=== PATIENT | female | born 1930 | race Caucasian/White ===

== ENCOUNTER 2017-12-06 15:20 | Inpatient (IN) | payer MEDICARE, OTHER ==
[~2017-12-06] VITALS: Ht 160 cm; Wt 85.7 kg
[~2017-12-06 15:20] MED LIST: [UNRECOGNIZED DRUG - REMARK]
[2017-12-06 15:30] VITALS: BP 135/60
[2017-12-06] MEDS ORDERED: DEXTROSE 50%-WATER 25 GM/50 ML SYRINGE IVP PRN (17:00)
[2017-12-06] MEDS ORDERED: IPRATROPIUM BROMIDE 0.5 MG/2.5 ML NEB SOLUTION NEB PRN (17:00)
[2017-12-06] MEDS ORDERED: ALBUTEROL SULFATE 2.5 MG/0.5 ML NEB SOLUTION NEB PRN (17:00)
[2017-12-06] MEDS ORDERED: MENTHOL/ZINC OXIDE 113 GM OINTMENT TP PRN (17:15)
[2017-12-06] MEDS: ACETAMINOPHEN 650 MG/20.3 ML SOLUTION UDCUP NG PRN (18:36)
[2017-12-06 18:38] LABS: GLUCOMETER DEV NAME(LOC) 2WR 1B; GLUCOSE,POINT OF CARE 102 MG/DL (70-110)
[2017-12-06] MEDS: ATORVASTATIN CALCIUM 40 MG TABLET NG SCH (20:21)
[2017-12-06] MEDS: SENNA 218 MG/5 ML SYRUP ORAL.SYG NG SCH (20:21)
[2017-12-07 00:18] VITALS: BP 100/57
[2017-12-07 00:18] LABS: GLUCOMETER DEV NAME(LOC) 2WR 1B; GLUCOSE,POINT OF CARE 131 MG/DL (70-110)
[2017-12-07] MEDS: LEVOTHYROXINE SODIUM 75 MCG TABLET NG SCH (05:44)
[2017-12-07 06:07] LABS: GLUCOMETER DEV NAME(LOC) 2WR 2D; GLUCOSE,POINT OF CARE 119 MG/DL (70-110)
[2017-12-07 07:10] LABS: BASOPHILS % (AUTO) 0.8 % (0.0-2.0); HEMOGLOBIN 12.1 g/dL (12.0-16.0); LYMPHOCYTES # (AUTO) 3.6 K/uL (1.0-4.8); LYMPHOCYTES % (AUTO) 33.2 % (22.0-44.0); MEAN CORPUSCULAR HEMOGLOBIN 29.4 pg (26.0-34.0); MEAN CORPUSCULAR HGB CONC 32.7 G/dL (31.0-37.0); MEAN CORPUSCULAR VOLUME 90 fL (80-100); MONOCYTES # (AUTO) 0.9 K/uL (0.1-1.0); MONOCYTES % (AUTO) 8.5 % (2.0-9.0); NEUTROPHILS # (AUTO) 5.9 K/uL (1.8-7.7); NEUTROPHILS % (AUTO) 54.5 % (40.0-70.0); PLATELET COUNT (AUTO) 263 K/uL (150-450); RED BLOOD CELL COUNT(AUTO) 4.11 MIL/uL (4.00-5.20); RED CELL DISTRIBUTION WIDTH 14.3 % (11.5-14.5)
[2017-12-07 07:30] VITALS: BP 150/57
[2017-12-07 07:32] LABS: ALANINE AMINOTRANSFERASE 27 U/L (12-78); ALBUMIN 2.5 g/dL (3.4-5.0); ALKALINE PHOSPHATASE 107 U/L (46-116); ANION GAP 6 mmol/L (8-16); ASPARTATE AMINOTRANSFERASE 23 U/L (15-37); BILIRUBIN,TOTAL 0.3 mg/dL (0.1-1.0); CALCIUM, TOTAL 8.7 mg/dL (8.8-10.5); CARBON DIOXIDE 29 mmol/L (22-29); CHLORIDE 102 mmol/L (98-107); GLOMERULAR FILTR. RATE CALC > 60 mL/min (>60); GLUCOSE,RANDOM 113 mg/dL (70-110); SODIUM SERUM 137 mmol/L (136-145); TOTAL PROTEIN, SERUM 7.4 g/dL (6.4-8.2); UREA NITROGEN, BLOOD 28 mg/dL (7-18)
[2017-12-07] MEDS: MULTIVITAMINS WITH MINERALS, THERAPEUTIC 15 ML UDCUP NG SCH (08:35)
[2017-12-07] MEDS: CHOLECALCIFEROL (VIT D3) 1,000 UNITS TABLET NG SCH (08:35)
[2017-12-07] MEDS: ENOXAPARIN SODIUM 40 MG/0.4 ML PF SYRINGE SQ SCH (08:35)
[2017-12-07] MEDS: FUROSEMIDE 20 MG TABLET NG SCH (08:36)
[2017-12-07] MEDS: HYDROCHLOROTHIAZIDE 25 MG TABLET NG SCH (08:38)
[2017-12-07] MEDS: ASPIRIN 81 MG CHEWABLE TABLET NG SCH (08:38)
[2017-12-07] MEDS: ACETAMINOPHEN 650 MG/20.3 ML SOLUTION UDCUP NG PRN (10:26)
[2017-12-07 16:05] VITALS: BP 128/60
[2017-12-07 16:33] LABS: APPEARANCE,URINE CLEAR (CLEAR); BILIRUBIN,URINE NEGATIVE (NEGATIVE); GLUCOSE, URINE (UA) NEGATIVE (NEGATIVE); KETONES,URINE NEGATIVE (NEGATIVE); LEUKOCYTE ESTERASE ,URINE TRACE (NEGATIVE); NITRATE,URINE NEGATIVE (NEGATIVE); OCCULT BLOOD,URINE NEGATIVE (NEGATIVE); PH,URINE 5.5 (5.0-8.0); PROTEIN,URINE NEGATIVE (NEGATIVE); UROBILINOGEN,URINE 0.2 mg/dL (<=1.0)
[2017-12-07 16:53] LABS: BACTERIA,URINE None Seen /HPF (None Seen); RBC,URINE None Seen /HPF (0-2); RENAL EPITHELIAL CELLS,URINE Few /LPF (None Seen); SQUAMOUS EPITHELIAL CELL,UR Few /LPF (None Seen)
[2017-12-07 19:07] LABS: GLUCOMETER DEV NAME(LOC) 2WR 2D; GLUCOSE,POINT OF CARE 139 MG/DL (70-110)
[2017-12-07 19:07] LABS: GLUCOMETER DEV NAME(LOC) 2WR 1B; GLUCOSE,POINT OF CARE 137 MG/DL (70-110)
[2017-12-07] MEDS: SENNA 218 MG/5 ML SYRUP ORAL.SYG NG SCH (21:22)
[2017-12-07] MEDS: ATORVASTATIN CALCIUM 40 MG TABLET NG SCH (21:22)
[2017-12-07 23:20] VITALS: BP 140/64
[2017-12-07] MEDS: INSULIN REGULAR, HUMAN 100 UNITS/ML SQ PRN (23:47)
[2017-12-07 23:52] LABS: GLUCOMETER DEV NAME(LOC) 2WR 1B; GLUCOSE,POINT OF CARE 144 MG/DL (70-110)
[2017-12-08] MEDS: LEVOTHYROXINE SODIUM 75 MCG TABLET NG SCH (05:52)
[2017-12-08] MEDS: INSULIN REGULAR, HUMAN 100 UNITS/ML SQ PRN (05:54)
[2017-12-08 06:18] LABS: GLUCOMETER DEV NAME(LOC) 2WR 1B; GLUCOSE,POINT OF CARE 158 MG/DL (70-110)
[2017-12-08 07:41] VITALS: BP 148/67
[2017-12-08] MEDS: ENOXAPARIN SODIUM 40 MG/0.4 ML PF SYRINGE SQ SCH (08:49)
[2017-12-08] MEDS: ASPIRIN 81 MG CHEWABLE TABLET NG SCH (08:49)
[2017-12-08] MEDS: HYDROCHLOROTHIAZIDE 25 MG TABLET NG SCH (08:49)
[2017-12-08] MEDS: CHOLECALCIFEROL (VIT D3) 1,000 UNITS TABLET NG SCH (08:49)
[2017-12-08] MEDS: FUROSEMIDE 20 MG TABLET NG SCH (08:49)
[2017-12-08] MEDS: MULTIVITAMINS WITH MINERALS, THERAPEUTIC 15 ML UDCUP NG SCH (08:53)
[2017-12-08] MEDS: PHENOL 1.4% 177 ML SPRAY BOTTLE PO PRN (09:06)
[2017-12-08] MEDS: HYPROMELLOSE 0.5% 15 ML OPHTHALMIC SOLUTION OU PRN (09:06)
[2017-12-08] MEDS ORDERED: DEXTROSE 50%-WATER 25 GM/50 ML SYRINGE IVP PRN (09:30)
[2017-12-08] MEDS ORDERED: LinaGLIPtin 5 MG TABLET PO SCH (11:00)
[2017-12-08 13:42] LABS: GLUCOMETER DEV NAME(LOC) 2WR 1B; GLUCOSE,POINT OF CARE 122 MG/DL (70-110)
[2017-12-08 16:45] VITALS: BP 125/56
[2017-12-08] MEDS: INSULIN ASPART 100 UNITS/ML SQ PRN (18:37)
[2017-12-08 18:52] LABS: GLUCOMETER DEV NAME(LOC) PVLAB127; GLUCOSE,POINT OF CARE 166 MG/DL (70-110)
[2017-12-08] MEDS: SENNA 218 MG/5 ML SYRUP ORAL.SYG NG SCH (21:08)
[2017-12-08] MEDS: ATORVASTATIN CALCIUM 40 MG TABLET NG SCH (21:08)
[2017-12-09] VITALS: BP_SYST 134; BP_SYST 137; BP_DIAS 56; BP_DIAS 68
[2017-12-09 00:13] LABS: GLUCOMETER DEV NAME(LOC) 2WR 1B; GLUCOSE,POINT OF CARE 129 MG/DL (70-110)
[2017-12-09] MEDS ORDERED: GABA-531 PO (04:20)
[2017-12-09] MEDS ORDERED: BENZ-51 PO (04:20)
[2017-12-09] MEDS ORDERED: FAMO20 PO (04:20)
[2017-12-09] MEDS ORDERED: PRAV40TA4 PO (04:20)
[2017-12-09] MEDS ORDERED: ASPI-1182 PO (04:20)
[2017-12-09] MEDS ORDERED: LEVO75 PO (04:20)
[2017-12-09] MEDS ORDERED: AMLO2.5T PO (04:20)
[2017-12-09] MEDS ORDERED: LINA5TAB PO (04:20)
[2017-12-09] MEDS: DOCUSATE SODIUM 283 MG/5 ML MINI-ENEMA PR PRN (05:42)
[2017-12-09] MEDS: LEVOTHYROXINE SODIUM 75 MCG TABLET NG SCH (05:43)
[2017-12-09 06:13] LABS: GLUCOMETER DEV NAME(LOC) 2WR 1B; GLUCOSE,POINT OF CARE 139 MG/DL (70-110)
[2017-12-09 06:45] LABS: BASOPHILS # (AUTO) 0.06 K/uL (0.00-0.20); BASOPHILS % (AUTO) 0.5 % (0.0-2.0); EOSINOPHILS # (AUTO) 0.27 K/uL (0.00-0.70); HEMATOCRIT 41.2 % (36-46); HEMOGLOBIN 13.2 g/dL (12.0-16.0); LYMPHOCYTES # (AUTO) 3.8 K/uL (1.0-4.8); MEAN CORPUSCULAR HEMOGLOBIN 28.7 pg (26.0-34.0); MEAN CORPUSCULAR VOLUME 90 fL (80-100); MONOCYTES # (AUTO) 0.9 K/uL (0.1-1.0); MONOCYTES % (AUTO) 7.1 % (2.0-9.0); NEUTROPHILS # (AUTO) 7.7 K/uL (1.8-7.7); NEUTROPHILS % (AUTO) 60.3 % (40.0-70.0); PLATELET COUNT (AUTO) 272 K/uL (150-450); RED BLOOD CELL COUNT(AUTO) 4.59 MIL/uL (4.00-5.20); RED CELL DISTRIBUTION WIDTH 14.7 % (11.5-14.5)
[2017-12-09 07:15] LABS: HEMOGLOBIN A1C 6.8 % (4.5-6.2)
[2017-12-09 07:20] LABS: ANION GAP 8 mmol/L (8-16); CALCIUM, TOTAL 9.1 mg/dL (8.8-10.5); CARBON DIOXIDE 30 mmol/L (22-29); CHLORIDE 96 mmol/L (98-107); CHOL/HDL RATIO 2.5 (3.9-5.7); CHOLESTEROL 87 mg/dL (131-200); CREATININE 0.77 mg/dL (0.60-1.30); GLOMERULAR FILTR. RATE CALC > 60 mL/min (>60); GLUCOSE,RANDOM 154 mg/dL (70-110); HDL CHOLESTEROL 35 mg/dL (40-60); LDL CHOL (CALC.) 35 mg/dL (0-130); POTASSIUM 3.8 mmol/L (3.5-5.1); SODIUM SERUM 134 mmol/L (136-145); THYROID STIMULATING HORMONE 13.04 uIU/mL (0.36-3.74); TRIGLYCERIDES 85 mg/dL (15-150); UREA NITROGEN, BLOOD 28 mg/dL (7-18)
[2017-12-09 07:41] VITALS: BP 119/67
[2017-12-09] MEDS: PHENOL 1.4% 177 ML SPRAY BOTTLE PO PRN (08:18)
[2017-12-09] MEDS: MULTIVITAMINS WITH MINERALS, THERAPEUTIC 15 ML UDCUP NG SCH (08:18)
[2017-12-09] MEDS: CHOLECALCIFEROL (VIT D3) 1,000 UNITS TABLET NG SCH (08:19)
[2017-12-09] MEDS: LinaGLIPtin 5 MG TABLET PO SCH (08:19)
[2017-12-09] MEDS: HYDROCHLOROTHIAZIDE 25 MG TABLET NG SCH (08:19)
[2017-12-09] MEDS: FUROSEMIDE 20 MG TABLET NG SCH (08:19)
[2017-12-09] MEDS: HYPROMELLOSE 0.5% 15 ML OPHTHALMIC SOLUTION OU PRN (08:19)
[2017-12-09] MEDS: ASPIRIN 81 MG CHEWABLE TABLET NG SCH (08:19)
[2017-12-09] MEDS: ENOXAPARIN SODIUM 40 MG/0.4 ML PF SYRINGE SQ SCH (08:19)
[2017-12-09 12:22] LABS: GLUCOMETER DEV NAME(LOC) PVLAB127; GLUCOSE,POINT OF CARE 145 MG/DL (70-110)
[2017-12-09] MEDS: INSULIN ASPART 100 UNITS/ML SQ PRN (12:25)
[2017-12-09 15:35] VITALS: BP 126/65
[2017-12-09 18:27] LABS: GLUCOMETER DEV NAME(LOC) PVLAB127; GLUCOSE,POINT OF CARE 137 MG/DL (70-110)
[2017-12-09] MEDS: SENNA 218 MG/5 ML SYRUP ORAL.SYG NG SCH (20:01)
[2017-12-09] MEDS: ATORVASTATIN CALCIUM 40 MG TABLET NG SCH (20:02)
[2017-12-09 23:53] LABS: GLUCOMETER DEV NAME(LOC) PVLAB127; GLUCOSE,POINT OF CARE 149 MG/DL (70-110)
[2017-12-10] VITALS: BP 129/71
[2017-12-10] MEDS: GuaiFENesin [SUGAR-FREE] 200 MG/10 ML SOLUTION UDCUP PO PRN ×2 (02:16→09:26)
[2017-12-10] MEDS: MODAFINIL 100 MG TABLET PO SCH ×2 (05:52→07:12)
[2017-12-10] MEDS: LEVOTHYROXINE SODIUM 150 MCG TABLET NG SCH (05:52)
[2017-12-10 06:07] LABS: GLUCOMETER DEV NAME(LOC) PVLAB127; GLUCOSE,POINT OF CARE 136 MG/DL (70-110)
[2017-12-10 07:05] VITALS: BP 135/62
[2017-12-10] MEDS: ENOXAPARIN SODIUM 40 MG/0.4 ML PF SYRINGE SQ SCH (07:31)
[2017-12-10] MEDS: CHOLECALCIFEROL (VIT D3) 1,000 UNITS TABLET NG SCH (07:31)
[2017-12-10] MEDS: ASPIRIN 81 MG CHEWABLE TABLET NG SCH (07:31)
[2017-12-10] MEDS: PHENOL 1.4% 177 ML SPRAY BOTTLE PO PRN (07:31)
[2017-12-10] MEDS: MULTIVITAMINS WITH MINERALS, THERAPEUTIC 15 ML UDCUP NG SCH (07:31)
[2017-12-10] MEDS: LinaGLIPtin 5 MG TABLET PO SCH (07:31)
[2017-12-10] MEDS: HYDROCHLOROTHIAZIDE 25 MG TABLET NG SCH (07:32)
[2017-12-10] MEDS: FUROSEMIDE 20 MG TABLET NG SCH ×3 (07:32→20:56)
[2017-12-10] MEDS: HYPROMELLOSE 0.5% 15 ML OPHTHALMIC SOLUTION OU PRN (07:32)
[2017-12-10] MEDS: SULFAMETHOX/TRIMETH DS 800-160 MG/TABLET PO SCH ×2 (09:26→20:56)
[2017-12-10] MEDS: ACETAMINOPHEN 650 MG/20.3 ML SOLUTION UDCUP NG PRN (09:26)
[2017-12-10 13:02] LABS: GLUCOMETER DEV NAME(LOC) PVLAB127; GLUCOSE,POINT OF CARE 137 MG/DL (70-110)
[2017-12-10 14:13] LABS: APPEARANCE,URINE CLEAR (CLEAR); BILIRUBIN,URINE NEGATIVE (NEGATIVE); GLUCOSE, URINE (UA) NEGATIVE (NEGATIVE); KETONES,URINE NEGATIVE (NEGATIVE); LEUKOCYTE ESTERASE ,URINE TRACE (NEGATIVE); NITRATE,URINE NEGATIVE (NEGATIVE); OCCULT BLOOD,URINE NEGATIVE (NEGATIVE); PROTEIN,URINE NEGATIVE (NEGATIVE); UROBILINOGEN,URINE 0.2 mg/dL (<=1.0)
[2017-12-10 14:44] LABS: BACTERIA,URINE Few /HPF (None Seen); RBC,URINE 0-2 /HPF (0-2)
[2017-12-10 14:45] LABS: SQUAMOUS EPITHELIAL CELL,UR Few /LPF (None Seen)
[2017-12-10 15:21] VITALS: BP 134/54
[2017-12-10] MEDS: INSULIN ASPART 100 UNITS/ML SQ PRN ×2 (18:24→23:37)
[2017-12-10 18:53] LABS: GLUCOMETER DEV NAME(LOC) 2WR 1B; GLUCOSE,POINT OF CARE 149 MG/DL (70-110)
[2017-12-10] MEDS: ATORVASTATIN CALCIUM 40 MG TABLET NG SCH (20:56)
[2017-12-10] MEDS: SENNA 218 MG/5 ML SYRUP ORAL.SYG NG SCH (20:56)
[2017-12-11 00:02] LABS: GLUCOMETER DEV NAME(LOC) PVLAB127; GLUCOSE,POINT OF CARE 153 MG/DL (70-110)
[2017-12-11 01:06] VITALS: BP 133/64
[2017-12-11] MEDS: DOCUSATE SODIUM 283 MG/5 ML MINI-ENEMA PR PRN (04:54)
[2017-12-11] MEDS: INSULIN ASPART 100 UNITS/ML SQ PRN ×3 (05:31→17:54)
[2017-12-11] MEDS: LEVOTHYROXINE SODIUM 150 MCG TABLET NG SCH (05:32)
[2017-12-11 05:33] LABS: GLUCOMETER DEV NAME(LOC) 2WR 1B; GLUCOSE,POINT OF CARE 157 MG/DL (70-110)
[2017-12-11] MEDS: MODAFINIL 100 MG TABLET PO SCH (06:53)
[2017-12-11 07:00] VITALS: BP 140/69
[2017-12-11 07:14] LABS: BASOPHILS # (AUTO) 0.06 K/uL (0.00-0.20); BASOPHILS % (AUTO) 0.5 % (0.0-2.0); EOSINOPHILS # (AUTO) 0.23 K/uL (0.00-0.70); EOSINOPHILS % (AUTO) 1.74 % (1.0-6.0); HEMATOCRIT 40.2 % (36-46); HEMOGLOBIN 12.9 g/dL (12.0-16.0); LYMPHOCYTES # (AUTO) 2.8 K/uL (1.0-4.8); LYMPHOCYTES % (AUTO) 21.6 % (22.0-44.0); MEAN CORPUSCULAR HEMOGLOBIN 28.6 pg (26.0-34.0); MEAN CORPUSCULAR HGB CONC 32.1 G/dL (31.0-37.0); MEAN CORPUSCULAR VOLUME 89 fL (80-100); NEUTROPHILS # (AUTO) 8.9 K/uL (1.8-7.7); NEUTROPHILS % (AUTO) 68.3 % (40.0-70.0); PLATELET COUNT (AUTO) 255 K/uL (150-450); RED BLOOD CELL COUNT(AUTO) 4.51 MIL/uL (4.00-5.20); RED CELL DISTRIBUTION WIDTH 14.7 % (11.5-14.5)
[2017-12-11 07:44] LABS: CALCIUM, TOTAL 9.1 mg/dL (8.8-10.5); CREATININE 1.02 mg/dL (0.60-1.30); MAGNESIUM 1.8 mg/dL (1.80-2.40); POTASSIUM 3.7 mmol/L (3.5-5.1)
[2017-12-11] MEDS: HYPROMELLOSE 0.5% 15 ML OPHTHALMIC SOLUTION OU PRN (07:48)
[2017-12-11] MEDS: DOCUSATE SODIUM 250 MG CAPSULE PO SCH (07:48)
[2017-12-11] MEDS: HYDROCHLOROTHIAZIDE 25 MG TABLET NG SCH (07:48)
[2017-12-11] MEDS: LinaGLIPtin 5 MG TABLET PO SCH (07:48)
[2017-12-11] MEDS: CHOLECALCIFEROL (VIT D3) 1,000 UNITS TABLET NG SCH (07:48)
[2017-12-11] MEDS: FUROSEMIDE 20 MG TABLET NG SCH ×2 (07:48→20:45)
[2017-12-11] MEDS: PHENOL 1.4% 177 ML SPRAY BOTTLE PO PRN (07:48)
[2017-12-11] MEDS: MULTIVITAMINS WITH MINERALS, THERAPEUTIC 15 ML UDCUP NG SCH (07:48)
[2017-12-11] MEDS: SULFAMETHOX/TRIMETH DS 800-160 MG/TABLET PO SCH ×2 (07:48→20:45)
[2017-12-11] MEDS: GuaiFENesin [SUGAR-FREE] 200 MG/10 ML SOLUTION UDCUP PO PRN (08:14)
[2017-12-11] MEDS ORDERED: ASPIRIN 81 MG CHEWABLE TABLET PO ONE (09:45)
[2017-12-11 12:18] LABS: GLUCOMETER DEV NAME(LOC) 2WR 1B; GLUCOSE,POINT OF CARE 150 MG/DL (70-110)
[2017-12-11] MEDS ORDERED: ENOXAPARIN SODIUM 40 MG/0.4 ML PF SYRINGE SQ ONE (14:45)
[2017-12-11 15:10] VITALS: BP 134/58
[2017-12-11 18:02] LABS: GLUCOMETER DEV NAME(LOC) PVLAB127; GLUCOSE,POINT OF CARE 167 MG/DL (70-110)
[2017-12-11] MEDS: SENNA 218 MG/5 ML SYRUP ORAL.SYG NG SCH (20:44)
[2017-12-11] MEDS: ATORVASTATIN CALCIUM 40 MG TABLET NG SCH (20:45)
[2017-12-11 23:57] LABS: GLUCOMETER DEV NAME(LOC) 2WR 1B; GLUCOSE,POINT OF CARE 129 MG/DL (70-110)
[2017-12-12] VITALS: BP 123/55
[2017-12-12] MEDS: ACETAMINOPHEN 650 MG/20.3 ML SOLUTION UDCUP NG PRN (01:43)
[2017-12-12 05:32] LABS: GLUCOMETER DEV NAME(LOC) PVLAB127; GLUCOSE,POINT OF CARE 169 MG/DL (70-110)
[2017-12-12] MEDS: LEVOTHYROXINE SODIUM 150 MCG TABLET NG SCH (05:41)
[2017-12-12] MEDS: MODAFINIL 100 MG TABLET PO SCH (05:42)
[2017-12-12] MEDS: INSULIN ASPART 100 UNITS/ML SQ PRN ×2 (05:42→12:30)
[2017-12-12 06:18] LABS: ALANINE AMINOTRANSFERASE 32 U/L (12-78); ALBUMIN 2.9 g/dL (3.4-5.0); ALKALINE PHOSPHATASE 110 U/L (46-116); ANION GAP 6 mmol/L (8-16); ASPARTATE AMINOTRANSFERASE 25 U/L (15-37); BILIRUBIN,TOTAL 0.4 mg/dL (0.1-1.0); CALCIUM, TOTAL 9.1 mg/dL (8.8-10.5); CARBON DIOXIDE 32 mmol/L (22-29); CHLORIDE 91 mmol/L (98-107); CREATININE 1.22 mg/dL (0.60-1.30); GLOMERULAR FILTR. RATE CALC 42 mL/min (>60); GLUCOSE,RANDOM 138 mg/dL (70-110); POTASSIUM 4.1 mmol/L (3.5-5.1); SODIUM SERUM 129 mmol/L (136-145); TOTAL PROTEIN, SERUM 8.2 g/dL (6.4-8.2); UREA NITROGEN, BLOOD 35 mg/dL (7-18)
[2017-12-12 06:29] LABS: B-TYPE NATRIURETIC PEPTIDE 173 pg/mL (0-100)
[2017-12-12 07:50] VITALS: BP 176/76
[2017-12-12] MEDS: FUROSEMIDE 20 MG TABLET NG SCH ×2 (07:53→20:19)
[2017-12-12] MEDS: CHOLECALCIFEROL (VIT D3) 1,000 UNITS TABLET NG SCH (07:53)
[2017-12-12] MEDS: DOCUSATE SODIUM 250 MG CAPSULE PO SCH (07:53)
[2017-12-12] MEDS: LinaGLIPtin 5 MG TABLET PO SCH (07:53)
[2017-12-12] MEDS: PHENOL 1.4% 177 ML SPRAY BOTTLE PO PRN (07:53)
[2017-12-12] MEDS: SULFAMETHOX/TRIMETH DS 800-160 MG/TABLET PO SCH (07:54)
[2017-12-12] MEDS: HYPROMELLOSE 0.5% 15 ML OPHTHALMIC SOLUTION OU PRN (07:54)
[2017-12-12] MEDS: MULTIVITAMINS WITH MINERALS, THERAPEUTIC 15 ML UDCUP NG SCH (07:54)
[2017-12-12] MEDS ORDERED: ENOXAPARIN SODIUM 40 MG/0.4 ML PF SYRINGE SQ ONE (09:00)
[2017-12-12] MEDS ORDERED: ASPIRIN 81 MG CHEWABLE TABLET PO ONE ×2 (09:00)
[2017-12-12] MEDS ORDERED: CefTRIAXone SODIUM 1 GM in DEXTROSE 5%-WATER 10 ML IV SCH (09:00)
[2017-12-12 09:30] VITALS: BP 135/67
[2017-12-12] MEDS ORDERED: MetroNIDAZOLE 500 MG/NACL 100 ML IV SCH ×2 (12:00→18:00)
[2017-12-12 12:07] LABS: GLUCOMETER DEV NAME(LOC) PVLAB127; GLUCOSE,POINT OF CARE 142 MG/DL (70-110)
[2017-12-12] MEDS ORDERED: SODIUM CHLORIDE 0.9% 250 ML IV ONE (12:53)
[2017-12-12] MEDS: MetroNIDAZOLE 500 MG/NACL 100 ML IV SCH ×2 (13:12→17:52)
[2017-12-12 17:09] VITALS: BP 126/62
[2017-12-12] MEDS: 0.9% SODIUM CHLORIDE 10 ML SYRINGE IVP SCH ×2 (17:52→23:18)
[2017-12-12 18:07] LABS: GLUCOMETER DEV NAME(LOC) PVLAB127; GLUCOSE,POINT OF CARE 137 MG/DL (70-110)
[2017-12-12] MEDS: ATORVASTATIN CALCIUM 40 MG TABLET NG SCH (20:19)
[2017-12-12] MEDS: SENNA 218 MG/5 ML SYRUP ORAL.SYG NG SCH (20:20)
[2017-12-12] MEDS: MetroNIDAZOLE 500 MG TABLET PO SCH (23:18)
[2017-12-12 23:52] LABS: GLUCOMETER DEV NAME(LOC) 2WR 1B; GLUCOSE,POINT OF CARE 150 MG/DL (70-110)
[2017-12-13] VITALS: BP 125/59
[2017-12-13 05:39] LABS: GLUCOMETER DEV NAME(LOC) PVLAB127; GLUCOSE,POINT OF CARE 139 MG/DL (70-110)
[2017-12-13] MEDS: LEVOTHYROXINE SODIUM 150 MCG TABLET NG SCH (05:40)
[2017-12-13 06:38] LABS: BASOPHILS # (AUTO) 0.07 K/uL (0.00-0.20); BASOPHILS % (AUTO) 0.5 % (0.0-2.0); EOSINOPHILS # (AUTO) 0.22 K/uL (0.00-0.70); EOSINOPHILS % (AUTO) 1.64 % (1.0-6.0); HEMATOCRIT 39.7 % (36-46); HEMOGLOBIN 12.7 g/dL (12.0-16.0); LYMPHOCYTES # (AUTO) 2.9 K/uL (1.0-4.8); LYMPHOCYTES % (AUTO) 21.4 % (22.0-44.0); MEAN CORPUSCULAR HEMOGLOBIN 28.5 pg (26.0-34.0); MEAN CORPUSCULAR HGB CONC 31.9 G/dL (31.0-37.0); MEAN CORPUSCULAR VOLUME 89 fL (80-100); MONOCYTES # (AUTO) 1.1 K/uL (0.1-1.0); MONOCYTES % (AUTO) 8.4 % (2.0-9.0); NEUTROPHILS # (AUTO) 9.1 K/uL (1.8-7.7); PLATELET COUNT (AUTO) 242 K/uL (150-450); RED BLOOD CELL COUNT(AUTO) 4.44 MIL/uL (4.00-5.20); RED CELL DISTRIBUTION WIDTH 15.1 % (11.5-14.5)
[2017-12-13 06:49] LABS: CALCIUM, TOTAL 8.7 mg/dL (8.8-10.5); CREATININE 1.3 mg/dL (0.60-1.30); MAGNESIUM 1.9 mg/dL (1.80-2.40); POTASSIUM 3.8 mmol/L (3.5-5.1)
[2017-12-13] MEDS: MODAFINIL 100 MG TABLET PO SCH (07:00)
[2017-12-13 07:12] VITALS: BP 145/66
[2017-12-13] MEDS: MetroNIDAZOLE 500 MG TABLET PO SCH ×2 (08:00→16:09)
[2017-12-13] MEDS: 0.9% SODIUM CHLORIDE 10 ML SYRINGE IVP SCH ×3 (08:49→23:27)
[2017-12-13] MEDS: CHOLECALCIFEROL (VIT D3) 1,000 UNITS TABLET NG SCH (09:00)
[2017-12-13] MEDS: MULTIVITAMINS WITH MINERALS, THERAPEUTIC 15 ML UDCUP NG SCH (09:00)
[2017-12-13] MEDS: FUROSEMIDE 20 MG TABLET NG SCH (09:00)
[2017-12-13] MEDS: LinaGLIPtin 5 MG TABLET PO SCH (09:00)
[2017-12-13] MEDS: DOCUSATE SODIUM 250 MG CAPSULE PO SCH (09:00)
[2017-12-13 09:56] LABS: INR 1.1 (0.9-1.1); PROTHROMBIN TIME 11.6 SEC (9.4-11.6)
[2017-12-13] MEDS ORDERED: SODIUM CHLORIDE 0.9% 1,000 ML IV ONE ×3 (10:45→11:12)
[2017-12-13 13:32] VITALS: BP 148/68
[2017-12-13 13:38] LABS: GLUCOMETER DEV NAME(LOC) PVLAB127; GLUCOSE,POINT OF CARE 127 MG/DL (70-110)
[2017-12-13 15:36] VITALS: BP 148/72
[2017-12-13] MEDS ORDERED: CefTRIAXone SODIUM 1 GM in DEXTROSE 5%-WATER 10 ML IV SCH (16:00)
[2017-12-13] MEDS: ACETAMINOPHEN 650 MG/20.3 ML SOLUTION UDCUP NG PRN (16:17)
[2017-12-13] MEDS ORDERED: ACETAMINOPHEN 650 MG/20.3 ML SOLUTION UDCUP PEG PRN (16:30)
[2017-12-13] MEDS ORDERED: ONDANSETRON HCL 4 MG/2 ML VIAL IVP PRN (17:30)
[2017-12-13] MEDS: INSULIN ASPART 100 UNITS/ML SQ PRN (17:51)
[2017-12-13 17:58] LABS: GLUCOMETER DEV NAME(LOC) PVLAB127; GLUCOSE,POINT OF CARE 141 MG/DL (70-110)
[2017-12-13 21:00] VITALS: BP 135/58
[2017-12-13] MEDS ORDERED: SENNA 218 MG/5 ML SYRUP ORAL.SYG PEG SCH (21:00)
[2017-12-13] MEDS ORDERED: ATORVASTATIN CALCIUM 40 MG TABLET PEG SCH (21:00)
[2017-12-13] MEDS: FUROSEMIDE 20 MG TABLET PEG SCH (21:06)
[2017-12-13] MEDS: MetroNIDAZOLE 500 MG TABLET PEG SCH (23:27)
[2017-12-14] VITALS: BP 116/67
[2017-12-14 00:23] LABS: GLUCOMETER DEV NAME(LOC) PVLAB127; GLUCOSE,POINT OF CARE 123 MG/DL (70-110)
[2017-12-14 02:30] VITALS: BP 145/72
[2017-12-14] MEDS ORDERED: MULT1TAB61 PO (04:54)
[2017-12-14] MEDS ORDERED: MODA100 PO (04:54)
[2017-12-14] MEDS ORDERED: SENN176S PEG (04:54)
[2017-12-14] MEDS ORDERED: FURO20 PO (04:54)
[2017-12-14] MEDS ORDERED: VITAD1000 PEG (04:54)
[2017-12-14] MEDS ORDERED: METR500 PO (04:54)
[2017-12-14] MEDS ORDERED: PROPOFOL 1% 20 ML VIAL IVP ONE ×2 (05:47→05:54)
[2017-12-14] MEDS ORDERED: EPHEDrine SULFATE 50 MG/ML VIAL IM ONE (05:47)
[2017-12-14] MEDS: INSULIN ASPART 100 UNITS/ML SQ PRN ×2 (05:57→12:34)
[2017-12-14 06:03] LABS: GLUCOMETER DEV NAME(LOC) 2WR 1B; GLUCOSE,POINT OF CARE 141 MG/DL (70-110)
[2017-12-14 07:00] VITALS: BP 134/67
[2017-12-14] MEDS ORDERED: LEVOTHYROXINE SODIUM 150 MCG TABLET PEG SCH (07:00)
[2017-12-14] MEDS ORDERED: MODAFINIL 100 MG TABLET PEG SCH (07:00)
[2017-12-14] MEDS: MetroNIDAZOLE 500 MG TABLET PEG SCH (08:21)
[2017-12-14] MEDS: 0.9% SODIUM CHLORIDE 10 ML SYRINGE IVP SCH (08:21)
[2017-12-14] MEDS: FUROSEMIDE 20 MG TABLET PEG SCH (08:22)
[2017-12-14] MEDS ORDERED: DOCUSATE SODIUM 250 MG CAPSULE PEG SCH (09:00)
[2017-12-14] MEDS ORDERED: CHOLECALCIFEROL (VIT D3) 1,000 UNITS TABLET PEG SCH (09:00)
[2017-12-14] MEDS ORDERED: HYDROGEN PEROXIDE 473 ML SOLUTION TP SCH (09:00)
[2017-12-14] MEDS ORDERED: LinaGLIPtin 5 MG TABLET PEG SCH (09:00)
[2017-12-14] MEDS ORDERED: POVIDONE-IODINE 10% 120 ML SOLUTION TP SCH (09:00)
[2017-12-14] MEDS ORDERED: MULTIVITAMINS WITH MINERALS, THERAPEUTIC 15 ML UDCUP PEG SCH (09:00)
[2017-12-14 12:38] LABS: GLUCOMETER DEV NAME(LOC) PVLAB127; GLUCOSE,POINT OF CARE 141 MG/DL (70-110)
== END 2017-12-14 14:24 | DRG 64 ==
LOC: 2WR 15:20
PROC: 0DH63UZ Insertion of Feeding Device into Stomach, Percutaneous Approach (ICD-10-PCS; principal; 2017-12-13 12:00)
DX: I63.9 Cerebral infarction, unspecified (principal); E43 Unspecified severe protein-calorie malnutrition; J69.0 Pneumonitis due to inhalation of food and vomit; J90 Pleural effusion, not elsewhere classified; G81.91 Hemiplegia, unspecified affecting right dominant side; R13.10 Dysphagia, unspecified; E11.22 Type 2 diabetes mellitus with diabetic chronic kidney disease; M48.56XA Collapsed vertebra, not elsewhere classified, lumbar region, initial encounter for fracture; N18.3 Chronic kidney disease, stage 3 (moderate); R47.81 Slurred speech; R32 Unspecified urinary incontinence; E03.9 Hypothyroidism, unspecified; I10 Essential (primary) hypertension; E78.5 Hyperlipidemia, unspecified; E66.09 Other obesity due to excess calories; E78.00 Pure hypercholesterolemia, unspecified; Z96.653 Presence of artificial knee joint, bilateral; R47.1 Dysarthria and anarthria; D72.829 Elevated white blood cell count, unspecified; I12.9 Hypertensive chronic kidney disease with stage 1 through stage 4 chronic kidney disease, or unspecified chronic kidney disease; I70.0 Atherosclerosis of aorta; Z79.84 Long term (current) use of oral hypoglycemic drugs; Z91.81 History of falling; Z68.33 Body mass index [BMI] 33.0-33.9, adult; Z90.49 Acquired absence of other specified parts of digestive tract; Z98.42 Cataract extraction status, left eye; Z98.41 Cataract extraction status, right eye; Z60.2 Problems related to living alone; Z88.1 Allergy status to other antibiotic agents; Z91.012 Allergy to eggs; Z91.048 Other nonmedicinal substance allergy status; Z79.82 Long term (current) use of aspirin
CPT/HCPCS: 70220; 71046; 74018; 82962; 83036; 83735; 84145; 84443; 85651; 86140; 87081; 87086; 92507; 92508; 92523; 92526; 93005; 93970; 97110; 97112; 97116; 97163; 97167; 97530; 97535; 99366; J0696; J1650; J2704; J3490; J7030; J7050; J7060

== ENCOUNTER → 2019-07-06 | Outpatient (CLI) | payer MEDICARE, OTHER ==
[~2019-07-06] MED LIST changes: +AMLO2.5T4 PO; +ASPI-1182 PO; +BENZ-51 PO; +FAMO20 PO; +FURO20 PO; +GABA-531 PO; +LEVO75 PO; +LINA5TAB PO; +METR500 PO; +MODA100 PO; +MULT1TAB61 PO; +PRAV40TA4 PO; +SENN176S PEG; +VITAD1000 PEG; -[UNRECOGNIZED DRUG - REMARK]
== END | disposition home or self-care (01) ==
LOC: RADMN 09:17
PROVIDERS: ATTEND Hospitalist
DX: J84.10 Pulmonary fibrosis, unspecified (principal); I51.7 Cardiomegaly; I70.0 Atherosclerosis of aorta
CPT/HCPCS: 71250